=== PATIENT | male | born 1965 | race Caucasian/White ===

== ENCOUNTER 2017-09-07 19:56 | Emergency (ER) | payer OTHER ==
[~2017-09-07] VITALS: Ht 180.3 cm; Wt 110.2 kg
[2017-09-07] MEDS ORDERED: BACTRIM DS1 TAB PO (21:40)
[2017-09-07 21:55] VITALS: BP 146/90
== END 2017-09-07 21:58 | disposition home or self-care (01) | DRG 603 ==
LOC: ED 19:56
DX: L03.116 Cellulitis of left lower limb (principal); L02.416 Cutaneous abscess of left lower limb; F17.210 Nicotine dependence, cigarettes, uncomplicated; F41.9 Anxiety disorder, unspecified; G89.29 Other chronic pain; M54.2 Cervicalgia; B95.61 Methicillin susceptible Staphylococcus aureus infection as the cause of diseases classified elsewhere

== ENCOUNTER 2020-10-12 | Emergency (ER) | payer MEDICAID ==
[~2020-10-12] MED LIST: BACTRIM DS1 TAB PO
[2020-10-12] MEDS ORDERED: KEFLEX500 M1 PO ×2 (13:15→13:33)
== END 2020-10-12 13:42 | disposition home or self-care (01) ==
DX: S21.149A Puncture wound with foreign body of unspecified front wall of thorax without penetration into thoracic cavity, initial encounter (principal); S31.149A Puncture wound of abdominal wall with foreign body, unspecified quadrant without penetration into peritoneal cavity, initial encounter; S31.040A Puncture wound with foreign body of lower back and pelvis without penetration into retroperitoneum, initial encounter; S71.142A Puncture wound with foreign body, left thigh, initial encounter; S71.141A Puncture wound with foreign body, right thigh, initial encounter; S01.342A Puncture wound with foreign body of left ear, initial encounter; S51.842A Puncture wound with foreign body of left forearm, initial encounter; S51.841A Puncture wound with foreign body of right forearm, initial encounter; F41.9 Anxiety disorder, unspecified; F17.200 Nicotine dependence, unspecified, uncomplicated; W33.01XA Accidental discharge of shotgun, initial encounter; Y93.89 Activity, other specified; Y92.009 Unspecified place in unspecified non-institutional (private) residence as the place of occurrence of the external cause